=== PATIENT | male | born 1980 | race American Indian/Alaskan Native ===

== ENCOUNTER 2016-05-27 11:42 | Emergency (ER) | payer SELFPAY ==
[2016-05-27 12:05] VITALS: BP 136/99
[2016-05-27] MEDS ORDERED: BOOSTRIX IM ONE (14:43)
--- NOTE | 2016-05-27 14:46 | Emergency Department Report ---
[facility] Chief Complaint: Wound/Laceration Stated Complaint: LAC/L INDEX FINGER Other History: 35 y/o male with no significant PMHx, presents to the ED c/o laceration to the distal tip of the left second finger last night at approximately 17:30. The patient states he sustained the laceration on the serrated end of a tape patterson. Unknown tetanus status. Patient's PCP is out of town. ED Review of Systems ROS: Stated complaint: LAC/L INDEX FINGER Other details as noted in HPI ED Past Medical Hx - Past Medical History Previous Medical History?: No - Surgical History Additional Surgical History: RIGHT 4TH TOE FUSION - Social History Smoking Status: Current Every Day Smoker Substance Use Type: Alcohol - Medications Home Medications: Home Medications Medication Instructions Recorded Confirmed Last Taken Type Cephalexin [Keflex] 500 mg PO TID #30 capsule 05/27/16 Unknown Rx Laceration Physical Exam - Exam General: Vital signs noted. No distress. Alert and acting appropriately. Laceration Location: Upper Extremity Laceration Exam: No Foreign Body, No Exposed Tendon, Vessel, or Nerve, No Tendon Injury, No Normal Distal CMS (avulsion of the tip of the left index finger.) ED Course Vital Signs 05/27/16 11:50 Temperature 97.8 F Pulse Rate 67 Respiratory 17 Rate Blood Pressure 136/99 O2 Sat by Pulse 100 Oximetry ED Medical Decision Making - Medical Decision Making Patient evaluated by provider in fast track. 35 y/o male presents complaining of laceration to the distal left second finger last night at approximately 17: 30 on a serrated tape patterson. Discussed with patient the need to change the dressing on the laceration twice per day and to keep the area clean. Patient states understanding and will follow instructions. Vital signs stable, patient is in no acute distress. Critical care attestation.: If time is entered above; I have spent that time in minutes in the direct care of this critically ill patient, excluding procedure time. ED Disposition Clinical Impression: Laceration of finger of left hand Qualifiers: Encounter type: initial encounter Qualified Code(s): S61.219A - Laceration without foreign body of unspecified finger without damage to nail, initial encounter Disposition: DISCHARGED TO HOME OR SELFCARE Is pt being admited?: No Does the pt Need Aspirin: No Condition: Stable Instructions: Finger Laceration (ED) Additional Instructions: Is take antibiotics as prescribed. Change dressing at least twice a day. If there is any signs of infection swelling very red purulent discharge tip turns black please return to the emergency room immediately Prescriptions: Cephalexin [Keflex] 500 mg PO TID #30 capsule Referrals: PRIMARY CARE, [Primary Care Provider] - 3-5 Days Forms: Work/School Release Form(ED)
== END 2016-05-27 15:50 | disposition home or self-care (01) ==
LOC: ED 11:42
DX: S61.211A Laceration without foreign body of left index finger without damage to nail, initial encounter (principal); F17.200 Nicotine dependence, unspecified, uncomplicated; W45.8XXA Other foreign body or object entering through skin, initial encounter; Y93.89 Activity, other specified; Y99.9 Unspecified external cause status; Y92.89 Other specified places as the place of occurrence of the external cause
CPT/HCPCS: 90471; 90715; 99282; A6021